=== PATIENT | male | born 1970 | race Caucasian/White ===

== ENCOUNTER 2018-12-07 19:41 | Observation (INO) ==
[2018-12-07] MEDS ORDERED: Ipratropium/Albuterol Neb 3 ML IH ONE (21:13)
[2018-12-07 21:45] LABS: Basophils # 0.1 K/mcL (0.0-0.2); Basophils % 0.3 %; Eosinophils # 0.4 K/mcL (0.0-0.6); Eosinophils % 2.2 %; Hematocrit 40.7 % (37.5-50.1); Hemoglobin 12.9 g/dL (12.9-16.9); Immature Granulocytes % 0.5 % (0-4); Lymphocytes # 3.4 K/mcL (0.6-4.6); Lymphocytes % 21.8 %; Mean Corpuscular HGB Conc 31.7 g/dL (31.6-35.5); Mean Corpuscular Hemoglobin 28.7 pg (28.0-33.3); Mean Corpuscular Volume 90.6 fL (83.0-100.0); Mean Platelet Volume 9.9 fL (9.4-12.4); Monocytes # 0.7 K/mcL (0.0-1.3); Monocytes % 4.7 %; Platelet Count 366 K/mcL (140-400); Red Blood Count 4.49 M/mcL (4.19-5.50); Red Cell Distribution Width 16.4 % (11.5-14.5); Segmented Neutrophils % 70.5 %; White Blood Count 15.6 K/mcL (4.3-11.1)
--- NOTE | 2018-12-07 21:57 | Emergency Department Note ---
Disposition Clinical Impression: COPD exacerbation Disposition: Admitted As Inpatient Condition: Good Time of Disposition: 23:01 General Adult HPI - General Chief complaint: ED Dizziness Stated complaint: cough / fever / sore throat Time Seen by Provider: 12/07/18 19:51 Source: patient Limitations: no limitations Nursing Notes Reviewed: Yes Vital Signs Reviewed: Yes - History of Present Illness HPI Narrative: Patient is a 48-year-old male history of diabetes, asthma, COPD presenting the emergency department with cough. Patient states that on Saturday he had an episode of emesis in which he thinks he may have aspirated. Since then he has had a cough that is productive with green, and clear sputum, as well as upper sinus congestion.. She admits to fevers, chills, shortness of breath, wheezes, sore throat, pain when he coughs. Patient stated he took his fever at home and it was 101, for which he took a Tylenol for at 4 PM. He states his oxygen was also low. Denies chest pain, abdominal pain, urinary changes, headache Pain Scale: 8 - Related Data Home Medications Medication Instructions Recorded Confirmed Aspirin [Lo-Dose Aspirin EC] 81 mg PO DAILY 03/14/18 12/08/18 Atorvastatin [Lipitor] 80 mg PO HS 03/14/18 12/08/18 Benztropine [Cogentin] 1 mg PO HS 03/14/18 12/08/18 Buspirone HCl [Buspar] 15 mg PO BID 03/14/18 12/08/18 Duloxetine HCl [Cymbalta] 60 mg PO DAILY 03/14/18 12/08/18 Fluticasone Propionate Nasal 2 spray NS DAILY 03/14/18 12/08/18 [Flonase] Gabapentin [Neurontin] 800 mg PO TID 03/14/18 12/08/18 Levothyroxine [Synthroid] 25 mcg PO 0630 03/14/18 12/08/18 Lisinopril [Zestril] 5 mg PO DAILY 03/14/18 12/08/18 Melatonin 5 mg PO HS 03/14/18 12/08/18 Metformin HCl [Fortamet] 1,000 mg PO BID 03/14/18 12/08/18 Montelukast [Singulair] 10 mg PO HS 03/14/18 12/08/18 Multivit-Min/Folic/Vit K/Lycop 1 each PO DAILY 03/14/18 12/08/18 [Men's Multivitamin Caplet] Omeprazole [PriLOSEC] 20 mg PO DAILY 03/14/18 12/08/18 Prazosin HCl [Minipress] 1 cap PO BID 03/14/18 12/08/18 Ranitidine HCl [Acid Materials Specialist] 150 mg PO HS 03/14/18 12/08/18 Tizanidine HCl [Zanaflex] 4 mg PO TID 03/14/18 12/08/18 Ziprasidone HCl [Geodon] 80 mg PO BID 03/14/18 12/08/18 hydrOXYzine HCl [Hydroxyzine HCl] 50 mg PO QID PRN 03/14/18 12/08/18 Albuterol Sulfate 3 ml PO TID 07/16/18 12/08/18 Albuterol Sulfate [Ventolin Hfa] 2 puff PO Q4H 07/16/18 12/08/18 Aspirin/Acetaminophen/Caffeine 2 tab PO Q6H PRN 07/16/18 12/08/18 [Excedrin Migraine Caplet] Dulaglutide [Trulicity] 0.5 ml SQ QWEEK 07/16/18 12/08/18 Epipen 0.3 ml .ROUTE PRN PRN 07/16/18 12/08/18 Ergocalciferol 50,000 unit PO QWEEK 07/16/18 12/08/18 Fexofenadine HCl 1 tab PO DAILY 07/16/18 12/08/18 Fexofenadine/Pseudoephedrine 1 tab PO DAILY 07/16/18 12/08/18 [Nydia-D 24 Hour Tablet] Furosemide [Lasix] 1 tab PO DAILY 07/16/18 12/08/18 Hair Skin Nails-Biotin Gummies 1 tab PO DAILY 07/16/18 12/08/18 Humulin R U-500 Kwikpen 1 unit SQ BID 07/16/18 12/08/18 Mometasone Furoate 1 appl .ROUTE DAILY 07/16/18 12/08/18 Nitroglycerin [Nitrostat] 1 tab PO Q5MIN PRN 07/16/18 12/08/18 Pramipexole Di-HCl [Pramipexole 1 tab PO HS 07/16/18 12/08/18 Dihydrochloride] Rizatriptan Benzoate [Maxalt Doll Wig Maker Rooted Hair] 1 tab PO DAILY PRN 07/16/18 12/08/18 Simethicone [Gas Relief] 1 cap PO BID PRN 07/16/18 12/08/18 Sleep Aid 1 cap PO DAILY 07/16/18 12/08/18 Symbicort 160/4.5 2 puff PO BID 07/16/18 12/08/18 Previous Rx's Medication Instructions Recorded Acetaminophen [Tylenol] 650 mg PO Q6HR PRN #40 tablet MDD 09/21/15 3250 Azithromycin 250 mg PO DAILY #4 tablet 12/08/18 predniSONE [PredniSONE] 40 mg PO DAILY #10 tablet 12/08/18 Allergies Allergy/AdvReac Type Severity Reaction Status Date / Time Bleach (Sodium Hypochlorite) Allergy Hives Verified 06/27/18 08:56 fluticasone Allergy Swelling Verified 06/27/18 08:56 [From Advair Diskus] of Lip/Tongue/Throat salmeterol Allergy Swelling Verified 06/27/18 08:56 [From Advair Diskus] of Lip/Tongue/Throat tree nut Allergy unknown Verified 06/27/18 08:56 venom-honey bee Allergy unknown Verified 06/27/18 08:56 [bee venom (honey bee)] acetaminophen [From Percocet] AdvReac Blister Verified 06/27/18 08:56 oxycodone [From Percocet] AdvReac Blister Verified 06/27/18 08:56 All systems ED: reviewed and negative except as stated. Review of Systems: As Per HPI Constitutional: Reports: fever, chills Eyes: Denies: eye pain, eye discharge ENT ED: Denies: ear pain, throat pain Cardiovascular: Denies: chest pain, palpitations, dyspnea on exertion Respiratory: Reports: cough, dyspnea, wheezes, hemoptysis, sputum production Gastrointestinal: Denies: abdominal pain, nausea, vomiting, diarrhea, constipation Genitourinary: Denies: urgency, dysuria Musculoskeletal: Denies: back pain, neck pain Integumentary: Denies: rash, abrasion Neurological: Denies: headache, weakness Psychiatric: Denies: anxiety, depression Past Medical History - Past Medical History Attestation: Yes The following information was validated with the patient. Medical history: Reports: asthma, COPD, diabetes, GERD, hyperlipidemia, hypertension, kidney stones, migraine, thyroid disease, other Surgical history: Reports: appendectomy, sinus surgery, tonsillectomy, other Psychiatric history: Reports: anxiety, depression - Social History Smoking Status: Current every day smoker Smokeless Tobacco Status: No Alcohol use: Reports: none Drug use: Reports: none, marijuana Physical Exam - General Limitations: no limitations General appearance: alert, anxious - Head Head exam: atraumatic, normocephalic - Eye Eye exam: Present: normal appearance, PERRL, EOMI. Absent: scleral icterus, conjunctival injection (.) - ENT ENT exam: mucous membranes moist, TM's normal bilaterally, normal external ear exam (All of her is) - Neck Neck exam: Present: normal inspection - Chest Chest inspection: Present: normal inspection, symmetric chest wall rise - Respiratory Respiratory exam: Present: wheezes. Absent: respiratory distress, accessory muscle use (After the first 6 months), prolonged expiratory phase - Cardiovascular Cardiovascular exam: Present: regular rate, tachycardia, normal heart sounds (4) - Abdominal Exam Abdominal exam: Present: soft, Non-Tender. Absent: tenderness, distention, guarding, rebound - Neurological Exam Neurological exam: Present: alert, oriented X3 Course Course Narrative: patient presented with a cough, fever, shortness of breath, congestion follow. There is concern for pneumonia versus COPD exacerbation. We have ordered labs including procalcitonin, lactate as well as blood cultures. We have ordered a chest x-ray. We have ordered a breathing treatment to help with the wheezing and shortness of breath. - Reevaluation(s) Reevaluation #1: Spoke with patient. Patient states he is breathing better and the breathing treatments helped him patient has no longer wheezy. Discussed the results and findings. Time: 22:26 - Consultations Consultation #1: Patient signed out to Dr. Bustos and Dr. Reyes please refer to their note for further evaluation and treatment. Time: 23:10 Vital Signs Temperature 98.1 F 12/07/18 19:43 Pulse Rate 108 12/07/18 19:43 Respiratory Rate 22 12/07/18 19:43 Blood Pressure 135/95 12/07/18 19:43 O2 Sat by Pulse Oximetry 94 12/07/18 19:43 Temperature 98.1 F 12/08/18 11:25 Pulse Rate 86 12/08/18 11:25 Respiratory Rate 26 12/08/18 16:10 Blood Pressure 128/86 12/08/18 11:25 O2 Sat by Pulse Oximetry 96 12/08/18 16:10 Oxygen Delivery Oxygen Delivery Room Air Medical Decision Making - MDM Narrative Medical decision making narrative: patient presented with cough shortness, shortness of breath, fever his concerns for pneumonia. The patient elevated white count of 15.6, pro-calcitonin was negative as well as's lactate. This is possibly a COPD exacerbation. He im proved with the breathing treatments. Patient s signed out to Dr. Bustos and wrist Dr. Reyes please refer to their note for further evaluation and treatment. - Medical Records Medical records reviewed: Yes I reviewed the patient's medical records. - Lab Data Lab results reviewed: Yes I reviewed the patient's lab results. Result diagrams: 12/08/18 04:56 12/08/18 04:56 Lab Results 12/07/18 12/07/18 12/07/18 Range/Units 21:26 21:26 21:26 WBC 15.6 H (4.3-11.1) K/mcL RBC 4.49 (4.19-5.50) M/mcL Hgb 12.9 (12.9-16.9) g/dL Hct 40.7 (37.5-50.1) % MCV 90.6 (83.0-100.0) fL MCH 28.7 (28.0-33.3) pg MCHC 31.7 (31.6-35.5) g/dL RDW 16.4 H (11.5-14.5) % Plt Count 366 (140-400) K/mcL MPV 9.9 (9.4-12.4) fL Immature Gran % 0.5 (0-4) % Seg Neutrophils % 70.5 % Lymphocytes % 21.8 % Monocytes % 4.7 % Eosinophils % 2.2 % Basophils % 0.3 % Neutrophils # 11.0 H (1.6-8.9) K/mcL Lymphocytes # 3.4 (0.6-4.6) K/mcL Monocytes # 0.7 (0.0-1.3) K/mcL Eosinophils # 0.4 (0.0-0.6) K/mcL Basophils # 0.1 (0.0-0.2) K/mcL D-Dimer (0-500) ng/mLFEU Sodium 136 (136-145) mEq/L Potassium 4.1 (3.5-5.1) mEq/L Chloride 97 L (98-107) mEq/L Carbon Dioxide 26 (23-29) mEq/L BUN 11 (6-20) mg/dL Creatinine 0.83 (0.70-1.30) mg/dL Est GFR ( Amer) > 60 (> 60) Est GFR (Non-Af Amer) > 60 (> 60) BUN/Creatinine Ratio 13 (6-26) Glucose 125 H (70-105) mg/dL Calculated Osmolality 283 (280-300) Lactic Acid 2.0 (0.5-2.2) mmol/L Calcium 9.8 (8.6-10.3) mg/dL Troponin I < 0.03 (< 0.04) ng/mL B-Natriuretic Peptide (Less than 100) pg/mL Procalcitonin (0.00-0.15) ng/mL 12/07/18 12/07/18 12/07/18 Range/Units 21:26 21:26 21:26 WBC (4.3-11.1) K/mcL RBC (4.19-5.50) M/mcL Hgb (12.9-16.9) g/dL Hct (37.5-50.1) % MCV (83.0-100.0) fL MCH (28.0-33.3) pg MCHC (31.6-35.5) g/dL RDW (11.5-14.5) % Plt Count (140-400) K/mcL MPV (9.4-12.4) fL Immature Gran % (0-4) % Seg Neutrophils % % Lymphocytes % % Monocytes % % Eosinophils % % Basophils % % Neutrophils # (1.6-8.9) K/mcL Lymphocytes # (0.6-4.6) K/mcL Monocytes # (0.0-1.3) K/mcL Eosinophils # (0.0-0.6) K/mcL Basophils # (0.0-0.2) K/mcL D-Dimer 391 (0-500) ng/mLFEU Sodium (136-145) mEq/L Potassium (3.5-5.1) mEq/L Chloride (98-107) mEq/L Carbon Dioxide (23-29) mEq/L BUN (6-20) mg/dL Creatinine (0.70-1.30) mg/dL Est GFR ( Amer) (> 60) Est GFR (Non-Af Amer) (> 60) BUN/Creatinine Ratio (6-26) Glucose (70-105) mg/dL Calculated Osmolality (280-300) Lactic Acid (0.5-2.2) mmol/L Calcium (8.6-10.3) mg/dL Troponin I (< 0.04) ng/mL B-Natriuretic Peptide 15 (Less than 100) pg/mL Procalcitonin 0.11 (0.00-0.15) ng/mL - Radiology Data Radiology results reviewed: Yes I reviewed the patient's radiology results. Chest X-Ray 12/07/18 20:35 IMPRESSION: No acute process. D/ / Servando Lopez MD / Servando Lopez MD Interpreting Provider: Servando Lopez MD - EKG Data EKG #1 EKG attestation: Yes I reviewed and interpreted this EKG. EKG results narrative: EKG performed at 2100 and reviewed by myself and the attending shows a sinus rhythm that is tachycardic with a rate of 103, ID 168, QRS 101, QTc 468. Normal interval. There are no ST elevations, T-wave changes or other signs of ischemia. There is no EKG to compare this with. Overall this is a otherwise normal EKG except for the tachycardia. Attestation Statement - Attestation Attestation: I, Cristi Bustos, examined this patient and my medical decision-making was reviewed with the INSPECTOR PENETRANT/PA/Advanced Practice Nurse/Resident Physician. I agree with the documented findings, disposition and treatment plan as described except to the extent set forth below. 48-year-old male presents emergency Department with concerns of cough, fever, dyspnea. Patient states his MAXIMUM TEMPERATURE was 101 at home. He does not have a fever in the emergency department. Patient states he believes he aspirated within the past week. He reports that his O2 saturation has been 92% at home and is usually 96%. In the emergency department he does have wheezing the bilateral posterior lung sagastume. Chest x-ray does not show evidence of acute abnormality. He is afebrile. He has a leukocytosis however his pro- calcitonin is negative. Patient is otherwise awake alert answer questions appropriately. He does not appear in respiratory distress. He is given breathing treatment emergency department with improvement of symptoms. Patient likely has a COPD exacerbation as the etiology of his symptoms. He was tachycardic upon ambulation in the emergency department and felt lightheaded and that he was given a pass out. Troponin pending, d-dimer pending. Patient care will be transferred to the night team pending further evaluation and disposition.
[2018-12-07 22:07] LABS: BUN/Creatinine Ratio 13 (6-26); Blood Urea Nitrogen 11 mg/dL (6-20); Calcium 9.8 mg/dL (8.6-10.3); Carbon Dioxide 26 mEq/L (23-29); Chloride 97 mEq/L (98-107); Glucose 125 mg/dL (70-105); Osmolality,Calculated 283 (280-300); Potassium 4.1 mEq/L (3.5-5.1); Sodium 136 mEq/L (136-145); eGFR For African Americans > 60 (> 60); eGFR For Non-African Americans > 60 (> 60)
[2018-12-07] MEDS ORDERED: 0.9 % Sodium Chloride 1,000 ML IVC ONE (22:53)
[2018-12-07] MEDS ORDERED: Azithromycin 500 MG in D5% in Water 250 ML IVPB ONE (22:54)
[2018-12-07 23:20] LABS: Troponin I < 0.03 ng/mL (< 0.04)
--- NOTE | 2018-12-08 00:10 | Emergency Department Note ---
Disposition Clinical Impression: COPD exacerbation Disposition: Admitted As Inpatient Condition: Good Instructions: Chronic Obstructive Pulmonary Disease (ED) Reasons to Return/Additional Instructions: Please follow-up with your primary care provider for continuation of your care within the next week. Return to the emergency department if you develop any worsening of your condition or if you develop new concerning symptoms. Take your medications as prescribed. Referrals: Yolanda Cooper [Primary Care Provider] - Forms: ED Satisfaction Letter Time of Disposition: 00:10 General Adult HPI - General Chief complaint: ED Dizziness Stated complaint: cough / fever / sore throat Time Seen by Provider: 12/07/18 19:51 Source: patient Limitations: no limitations - History of Present Illness Pain Scale: 8 - Related Data Home Medications Medication Instructions Recorded Confirmed Aspirin [Lo-Dose Aspirin EC] 81 mg PO DAILY 03/14/18 12/08/18 Atorvastatin [Lipitor] 80 mg PO HS 03/14/18 12/08/18 Benztropine [Cogentin] 1 mg PO HS 03/14/18 12/08/18 Buspirone HCl [Buspar] 15 mg PO BID 03/14/18 12/08/18 Duloxetine HCl [Cymbalta] 60 mg PO DAILY 03/14/18 12/08/18 Fluticasone Propionate Nasal 2 spray NS DAILY 03/14/18 12/08/18 [Flonase] Gabapentin [Neurontin] 800 mg PO TID 03/14/18 12/08/18 Levothyroxine [Synthroid] 25 mcg PO 0630 03/14/18 12/08/18 Lisinopril [Zestril] 5 mg PO DAILY 03/14/18 12/08/18 Melatonin 5 mg PO HS 03/14/18 12/08/18 Metformin HCl [Fortamet] 1,000 mg PO BID 03/14/18 12/08/18 Montelukast [Singulair] 10 mg PO HS 03/14/18 12/08/18 Multivit-Min/Folic/Vit K/Lycop 1 each PO DAILY 03/14/18 12/08/18 [Men's Multivitamin Caplet] Omeprazole [PriLOSEC] 20 mg PO DAILY 03/14/18 12/08/18 Prazosin HCl [Minipress] 1 cap PO BID 03/14/18 12/08/18 Ranitidine HCl [Acid Concrete Floater] 150 mg PO HS 03/14/18 12/08/18 Tizanidine HCl [Zanaflex] 4 mg PO TID 03/14/18 12/08/18 Ziprasidone HCl [Geodon] 80 mg PO BID 03/14/18 12/08/18 hydrOXYzine HCl [Hydroxyzine HCl] 50 mg PO QID PRN 03/14/18 12/08/18 Albuterol Sulfate 3 ml PO TID 07/16/18 12/08/18 Albuterol Sulfate [Ventolin Hfa] 2 puff PO Q4H 07/16/18 12/08/18 Aspirin/Acetaminophen/Caffeine 2 tab PO Q6H PRN 07/16/18 12/08/18 [Excedrin Migraine Caplet] Dulaglutide [Trulicity] 0.5 ml SQ QWEEK 07/16/18 12/08/18 Epipen 0.3 ml .ROUTE PRN PRN 07/16/18 12/08/18 Ergocalciferol 50,000 unit PO QWEEK 07/16/18 12/08/18 Fexofenadine HCl 1 tab PO DAILY 07/16/18 12/08/18 Fexofenadine/Pseudoephedrine 1 tab PO DAILY 07/16/18 12/08/18 [Nydia-D 24 Hour Tablet] Furosemide [Lasix] 1 tab PO DAILY 07/16/18 12/08/18 Hair Skin Nails-Biotin Gummies 1 tab PO DAILY 07/16/18 12/08/18 Humulin R U-500 Kwikpen 1 unit SQ BID 07/16/18 12/08/18 Ibuprofen [Ibu] 1 tab PO TID PRN 07/16/18 12/08/18 Mometasone Furoate 1 appl .ROUTE DAILY 07/16/18 12/08/18 Nitroglycerin [Nitrostat] 1 tab PO Q5MIN PRN 07/16/18 12/08/18 Pramipexole Di-HCl [Pramipexole 1 tab PO HS 07/16/18 12/08/18 Dihydrochloride] Rizatriptan Benzoate [Maxalt Fretted String Instrument Repairer] 1 tab PO DAILY PRN 07/16/18 12/08/18 Simethicone [Gas Relief] 1 cap PO BID PRN 07/16/18 12/08/18 Sleep Aid 1 cap PO DAILY 07/16/18 12/08/18 Symbicort 160/4.5 2 puff PO BID 07/16/18 12/08/18 Previous Rx's Medication Instructions Recorded Acetaminophen [Tylenol] 650 mg PO Q6HR PRN #40 tablet MDD 09/21/15 3250 Ondansetron ODT [Zofran ODT] 4 mg SL Q8HR PRN #12 tab.rapdis 07/16/18 Rivaroxaban [Xarelto] 10 mg PO DAILY #20 tablet 07/16/18 Allergies Allergy/AdvReac Type Severity Reaction Status Date / Time Bleach (Sodium Hypochlorite) Allergy Hives Verified 06/27/18 08:56 fluticasone Allergy Swelling Verified 06/27/18 08:56 [From Advair Diskus] of Lip/Tongue/Throat salmeterol Allergy Swelling Verified 06/27/18 08:56 [From Advair Diskus] of Lip/Tongue/Throat tree nut Allergy unknown Verified 06/27/18 08:56 venom-honey bee Allergy unknown Verified 06/27/18 08:56 [bee venom (honey bee)] acetaminophen [From Percocet] AdvReac Blister Verified 06/27/18 08:56 oxycodone [From Percocet] AdvReac Blister Verified 06/27/18 08:56 Constitutional: Reports: fever, chills Eyes: Denies: eye pain, eye discharge ENT ED: Denies: ear pain, throat pain Cardiovascular: Denies: chest pain, palpitations, dyspnea on exertion Respiratory: Reports: cough, dyspnea, wheezes, hemoptysis, sputum production Gastrointestinal: Denies: abdominal pain, nausea, vomiting, diarrhea, constipation Genitourinary: Denies: urgency, dysuria Musculoskeletal: Denies: back pain, neck pain Integumentary: Denies: rash, abrasion Neurological: Denies: headache, weakness Psychiatric: Denies: anxiety, depression Past Medical History - Past Medical History Medical history: Reports: asthma, COPD, diabetes, GERD, hyperlipidemia, hype rtension, kidney stones, migraine, thyroid disease, other Surgical history: Reports: appendectomy, sinus surgery, tonsillectomy, other Psychiatric history: Reports: anxiety, depression - Social History Smoking Status: Current every day smoker Smokeless Tobacco Status: No Alcohol use: Reports: none Drug use: Reports: none, marijuana Physical Exam - General Limitations: no limitations General appearance: alert, anxious Course Vital Signs Temperature 98.1 F 12/07/18 19:43 Pulse Rate 108 12/07/18 19:43 Respiratory Rate 22 12/07/18 19:43 Blood Pressure 135/95 12/07/18 19:43 O2 Sat by Pulse Oximetry 94 12/07/18 19:43 Temperature 98.1 F 12/07/18 19:43 Pulse Rate 105 12/07/18 23:47 Respiratory Rate 12 12/07/18 23:47 Blood Pressure 137/93 12/07/18 23:47 O2 Sat by Pulse Oximetry 92 12/07/18 23:47 Oxygen Delivery Oxygen Delivery Room Air Medical Decision Making - Lab Data Result diagrams: 12/07/18 21:26 12/07/18 21:26 Lab Results 12/07/18 12/07/18 12/07/18 Range/Units 21:26 21:26 21:26 WBC 15.6 H (4.3-11.1) K/mcL RBC 4.49 (4.19-5.50) M/mcL Hgb 12.9 (12.9-16.9) g/dL Hct 40.7 (37.5-50.1) % MCV 90.6 (83.0-100.0) fL MCH 28.7 (28.0-33.3) pg MCHC 31.7 (31.6-35.5) g/dL RDW 16.4 H (11.5-14.5) % Plt Count 366 (140-400) K/mcL MPV 9.9 (9.4-12.4) fL Immature Gran % 0.5 (0-4) % Seg Neutrophils % 70.5 % Lymphocytes % 21.8 % Monocytes % 4.7 % Eosinophils % 2.2 % Basophils % 0.3 % Neutrophils # 11.0 H (1.6-8.9) K/mcL Lymphocytes # 3.4 (0.6-4.6) K/mcL Monocytes # 0.7 (0.0-1.3) K/mcL Eosinophils # 0.4 (0.0-0.6) K/mcL Basophils # 0.1 (0.0-0.2) K/mcL D-Dimer (0-500) ng/mLFEU Sodium 136 (136-145) mEq/L Potassium 4.1 (3.5-5.1) mEq/L Chloride 97 L (98-107) mEq/L Carbon Dioxide 26 (23-29) mEq/L BUN 11 (6-20) mg/dL Creatinine 0.83 (0.70-1.30) mg/dL Est GFR ( Amer) > 60 (> 60) Est GFR (Non-Af Amer) > 60 (> 60) BUN/Creatinine Ratio 13 (6-26) Glucose 125 H (70-105) mg/dL Calculated Osmolality 283 (280-300) Lactic Acid 2.0 (0.5-2.2) mmol/L Calcium 9.8 (8.6-10.3) mg/dL Troponin I < 0.03 (< 0.04) ng/mL B-Natriuretic Peptide (Less than 100) pg/mL Procalcitonin (0.00-0.15) ng/mL 12/07/18 12/07/18 12/07/18 Range/Units 21:26 21:26 21:26 WBC (4.3-11.1) K/mcL RBC (4.19-5.50) M/mcL Hgb (12.9-16.9) g/dL Hct (37.5-50.1) % MCV (83.0-100.0) fL MCH (28.0-33.3) pg MCHC (31.6-35.5) g/dL RDW (11.5-14.5) % Plt Count (140-400) K/mcL MPV (9.4-12.4) fL Immature Gran % (0-4) % Seg Neutrophils % % Lymphocytes % % Monocytes % % Eosinophils % % Basophils % % Neutrophils # (1.6-8.9) K/mcL Lymphocytes # (0.6-4.6) K/mcL Monocytes # (0.0-1.3) K/mcL Eosinophils # (0.0-0.6) K/mcL Basophils # (0.0-0.2) K/mcL D-Dimer 391 (0-500) ng/mLFEU Sodium (136-145) mEq/L Potassium (3.5-5.1) mEq/L Chloride (98-107) mEq/L Carbon Dioxide (23-29) mEq/L BUN (6-20) mg/dL Creatinine (0.70-1.30) mg/dL Est GFR ( Amer) (> 60) Est GFR (Non-Af Amer) (> 60) BUN/Creatinine Ratio (6-26) Glucose (70-105) mg/dL Calculated Osmolality (280-300) Lactic Acid (0.5-2.2) mmol/L Calcium (8.6-10.3) mg/dL Troponin I (< 0.04) ng/mL B-Natriuretic Peptide 15 (Less than 100) pg/mL Procalcitonin 0.11 (0.00-0.15) ng/mL Attestation Statement - Attestation Attestation: I reviewed the residents documentation and agree with the residents assessment and plan of care. I have personally had face to face time with the patient. (Brief History, Brief Exam, and MDM) I personally supervised and was present for the [place]/critical portions of the following procedures completed by the resident: acceptd sign out from Dr. Cristi gloria. Plan is to followup on the D-dimer and then if positive obbtain a cTA chest, but if negtive thena dmit to medicine for COPDE. Dd-beck is negative and we have admitted to medicne for COPDE
[2018-12-08] MEDS ORDERED: Albuterol 2.5 MG/3 ML NEBULIZER IH PRN (03:09)
[2018-12-08] MEDS ORDERED: Naloxone 0.4 MG/ML INJ IVP PRN (03:09)
[2018-12-08] MEDS ORDERED: Dextrose Gel 15 GM/37.5 ML TUBE PO PRN ×2 (03:09)
[2018-12-08] MEDS ORDERED: D5% in Water 1,000 ML IVC PRN (03:09)
[2018-12-08] MEDS ORDERED: *HR* Dextrose 50 % in Water (Syg) 50 ML SYRINGE IVP PRN (03:09)
--- NOTE | 2018-12-08 03:19 | Internal Med History&Physical ---
Date of Encounter: 12/08/18 Time of Encounter: 02:22 Internal Medicine - H&P: HPI Chief complaint: COPD exacerbation Admitted From: Emergency Dept Plans for Post Hospital Care: Home History of present illness: Mr. Chinchilla is a 48 year old male Patient presented to the emergency department with shortness of breath and c ough. He says approximately 5 days ago he had an episode of vomiting and possibly aspirated. Since then he has been coughing up brownish colored sputum. 2 days ago patient noticed that his right ear and sinuses felt clogged. He is also noticed coarse breath sounds and crackles in his lungs when he breathes. He measured his temperature at home and it was 101.4. Since his ear has been congested, he states he is also had some balance issues. He came to the emergency department for further evaluation. 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 Emergency department patient's initial vital signs: Temperature 98.1, pulse 108, respiratory rate 22, blood pressure 135/95, O2 saturation 94%. CBC: Notable for white count 15.6. BMP within normal limits, aside from mildly elevated blood glucose of 125. Initial troponin undetectable Lactic acid is 2.0 Procalcitonin 0.11 BNP 15 D-dimer 391 Chest x-ray showed no acute process. EKG: Sinus tachycardia with rate of 103, QTC 468. No acute ischemic changes. Emergency department patient had blood cultures drawn, and he was given 1 L of IV fluids, a dose of azithromycin IV, and breathing treatments. He was admitted to the hospital due to continued oxygen requirement despite not being on oxygen at home. Upon my evaluation, patient is resting comfortably in the hospital bed in no acute distress. He denies chest pain, abdominal pain, nausea, vomiting, diarrhea and constipation. He has a history of smoking, diabetes and COPD. He denies significant family medical history. He is a full code. Past Med Surg Social Fam HX - Past Medical History Medical history: asthma, COPD, diabetes, GERD, hyperlipidemia, hypertension, kidney stones, migraine, thyroid disease, other Additional medical history: LEFT ANKLE INJURY. Gb U/s shows probably fatty liver HIDA scan nrl. sleep apnea Psychiatric history: anxiety, depression - Past Surgical History Surgical History: appendectomy, sinus surgery, tonsillectomy, other Additional surgical history: right knee surgery. eye surgery. nasal surgery. tonsil - Social History Smoking Status: Current every day smoker Smokeless Tobacco Status: No Alcohol use: none Drug use: none, marijuana - Family History Mother Hx Family Cardiac Disorders: Yes (SC with stents) Hx Family Respiratory Disorders: Yes (COPD, asthma) Hx Family Endocrine Disorder: Yes (DM) Hx Family Musculoskeletal Disorders: Yes (spinal stenosis, knee and hip replacements) Hx Family Neurologic Disorders: Yes (stroke) Internal Medicine - H&P: Meds Acetaminophen [Tylenol] 650 mg PO Q6HR PRN #40 tablet MDD 3250 09/21/15 [Rx] Aspirin [Lo-Dose Aspirin EC] 81 mg PO DAILY 03/14/18 [History] Atorvastatin [Lipitor] 80 mg PO HS 03/14/18 [History] Benztropine [Cogentin] 1 mg PO HS 03/14/18 [History] Buspirone HCl [Buspar] 15 mg PO BID 03/14/18 [History] Duloxetine HCl [Cymbalta] 60 mg PO DAILY 03/14/18 [History] Fluticasone Propionate Nasal [Flonase] 2 spray NS DAILY 03/14/18 [History] Gabapentin [Neurontin] 800 mg PO TID 03/14/18 [History] Levothyroxine [Synthroid] 25 mcg PO 0630 03/14/18 [History] Lisinopril [Zestril] 5 mg PO DAILY 03/14/18 [History] Melatonin 5 mg PO HS 03/14/18 [History] Metformin HCl [Fortamet] 1,000 mg PO BID 03/14/18 [History] Montelukast [Singulair] 10 mg PO HS 03/14/18 [History] Multivit-Min/Folic/Vit K/Lycop [Men's Multivitamin Caplet] 1 each PO DAILY 03/14/18 [History] Omeprazole [PriLOSEC] 20 mg PO DAILY 03/14/18 [History] Prazosin HCl [Minipress] 1 cap PO BID 03/14/18 [History] Ranitidine HCl [Acid Check Inspector] 150 mg PO HS 03/14/18 [History] Tizanidine HCl [Zanaflex] 4 mg PO TID 03/14/18 [History] Ziprasidone HCl [Geodon] 80 mg PO BID 03/14/18 [History] hydrOXYzine HCl [Hydroxyzine HCl] 50 mg PO QID PRN 03/14/18 [History] Albuterol Sulfate 3 ml PO TID 07/16/18 [History] Albuterol Sulfate [Ventolin Hfa] 2 puff PO Q4H 07/16/18 [History] Aspirin/Acetaminophen/Caffeine [Excedrin Migraine Caplet] 2 tab PO Q6H PRN 07/16/18 [History] Dulaglutide [Trulicity] 0.5 ml SQ QWEEK 07/16/18 [History] Epipen 0.3 ml .ROUTE PRN PRN 07/16/18 [History] Ergocalciferol 50,000 unit PO QWEEK 07/16/18 [History] Fexofenadine HCl 1 tab PO DAILY 07/16/18 [History] Fexofenadine/Pseudoephedrine [Nydia-D 24 Hour Tablet] 1 tab PO DAILY 07/16/18 [History] Furosemide [Lasix] 1 tab PO DAILY 07/16/18 [History] Hair Skin Nails-Biotin Gummies 1 tab PO DAILY 07/16/18 [History] Humulin R U-500 Kwikpen 1 unit SQ BID 07/16/18 [History] Ibuprofen [Ibu] 1 tab PO TID PRN 07/16/18 [History] Mometasone Furoate 1 appl .ROUTE DAILY 07/16/18 [History] Nitroglycerin [Nitrostat] 1 tab PO Q5MIN PRN 07/16/18 [History] Ondansetron ODT [Zofran ODT] 4 mg SL Q8HR PRN #12 tab.rapdis 07/16/18 [Rx] Pramipexole Di-HCl [Pramipexole Dihydrochloride] 1 tab PO HS 07/16/18 [History] Rivaroxaban [Xarelto] 10 mg PO DAILY #20 tablet 07/16/18 [Rx] Rizatriptan Benzoate [Maxalt Theatrical Variety Agent] 1 tab PO DAILY PRN 07/16/18 [History] Simethicone [Gas Relief] 1 cap PO BID PRN 07/16/18 [History] Sleep Aid 1 cap PO DAILY 07/16/18 [History] Symbicort 160/4.5 2 puff PO BID 07/16/18 [History] Allergy/AdvReac Type Severity Reaction Status Date / Time Bleach (Sodium Hypochlorite) Allergy Hives Verified 06/27/18 08:56 fluticasone Allergy Swelling Verified 06/27/18 08:56 [From Advair Diskus] of Lip/Tongue/Throat salmeterol Allergy Swelling Verified 06/27/18 08:56 [From Advair Diskus] of Lip/Tongue/Throat tree nut Allergy unknown Verified 06/27/18 08:56 venom-honey bee Allergy unknown Verified 06/27/18 08:56 [bee venom (honey bee)] acetaminophen [From Percocet] AdvReac Blister Verified 06/27/18 08:56 oxycodone [From Percocet] AdvReac Blister Verified 06/27/18 08:56 All Systems PM: A 10-system review of systems was performed and is negative for pertinent fi ndings except as documented above in the HPI. - Constitutional Vitals: Temp Pulse Resp BP Pulse Ox 98.3 F 101 16 118/82 91 12/08/18 02:15 12/08/18 02:15 12/08/18 02:15 12/08/18 02:15 12/08/18 02:15 General appearance: Present: cooperative, A&O X 3, morbidly obese, pleasant, no acute distress, answers questions appropriately Exam: - - Head Head exam: Present: normal inspection - Eye Eye exam: Present: EOMI, normal appearance - ENT ENT exam: Present: mucous membranes moist, normal external ear exam, TM's normal bilaterally Additional comments: Could not visualize right tympanic membrane secondary to cerumen buildup - Respiratory Respiratory exam: Present: wheezes. Absent: decreased breath sounds, CTAB, rales - Cardiovascular Cardiovascular exam: Present: RRR. Absent: diastolic murmur, systolic murmur - GI/Abdominal GI/Abdominal exam: Present: normal bowel sounds, soft. Absent: tenderness - Extremities Exam Extremities exam: Present: warm, radial pulses palpable and symmetrical. Absent: calf tenderness, pedal edema, tenderness Additional comments: Patient currently wearing compression stockings - Neurological Exam Neurological exam: Present: no focal deficits, strengths equal and symetr throughout. Absent: motor sensory deficit, facial droop, speech deficit - Skin Skin exam: Present: dry, normal color, warm Internal Med - H&P Results - Labs CBC & Chem 7: 12/07/18 21:26 12/07/18 21:26 Labs: Short CBC 12/07/18 Range/Units 21:26 WBC 15.6 H (4.3-11.1) K/mcL Hgb 12.9 (12.9-16.9) g/dL Hct 40.7 (37.5-50.1) % Plt Count 366 (140-400) K/mcL Neutrophils # 11.0 H (1.6-8.9) K/mcL BMP 12/07/18 21:26 Sodium 136 Potassium 4.1 Chloride 97 L Carbon Dioxide 26 BUN 11 Creatinine 0.83 Glucose 125 H Calcium 9.8 Cardiac Enzymes 12/07/18 Range/Units 21:26 Troponin I < 0.03 (< 0.04) ng/mL - Impressions ITS Impressions Chest X-Ray 12/07/18 20:35 IMPRESSION: No acute process. D/ / Servando Lopez MD / Servando Lopez MD Interpreting Provider: Servando Lopez MD - Assessment and Plan (1) COPD exacerbation Current Visit: Yes Status: Acute Assessment and plan: Patient received breathing treatments in the emergency department with improvement in his breathing. Continue breathing treatments Oral prednisone for 5 days Oxygen supplementation as needed Azithromycin 500 mg daily (2) Diabetes Current Visit: Yes Status: Acute Assessment and plan: Patient is an insulin dependent diabetic Monitor sugars ACHS Diabetic diet Low dose insulin sliding scale as needed Hold home meds. 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 Continue to monitor Receiving azithromycin 500 mg for COPD exacerbation Consider Augmentin at discharge if patient's symptoms not improving (4) Nicotine use disorder Current Visit: Yes Status: Acute Assessment and plan: Nicotine patch (5) Obstructive sleep apnea Current Visit: Yes Status: Acute Assessment and plan: Continue CPAP (6) DVT prophylaxis Current Visit: Yes Status: Acute Assessment and plan: Subcutaneous heparin - Time Spent With Patient Total time spent is greater than 50% in coordination of care (as documented) at patient's floor/unit and/or counseling patient: Greater than 35 minutes
[2018-12-08] MEDS: Nicotine 21 MG PATCH.TD24 TD SCH ×2 (03:44→08:08)
[2018-12-08] MEDS: Ipratropium/Albuterol Neb 3 ML IH SCH ×3 (04:15→16:15)
[2018-12-08 05:18] LABS: Hematocrit 39.6 % (37.5-50.1); Hemoglobin 12.5 g/dL (12.9-16.9); Mean Corpuscular HGB Conc 31.6 g/dL (31.6-35.5); Mean Corpuscular Hemoglobin 28.5 pg (28.0-33.3); Mean Corpuscular Volume 90.4 fL (83.0-100.0); Mean Platelet Volume 9.9 fL (9.4-12.4); Platelet Count 344 K/mcL (140-400); Red Blood Count 4.38 M/mcL (4.19-5.50); Red Cell Distribution Width 16.6 % (11.5-14.5); White Blood Count 16.3 K/mcL (4.3-11.1)
[2018-12-08 05:36] LABS: BUN/Creatinine Ratio 11 (6-26); Blood Urea Nitrogen 11 mg/dL (6-20); Calcium 9.2 mg/dL (8.6-10.3); Carbon Dioxide 29 mEq/L (23-29); Chloride 99 mEq/L (98-107); Glucose 158 mg/dL (70-105); Osmolality,Calculated 287 (280-300); Sodium 137 mEq/L (136-145); eGFR For African Americans > 60 (> 60); eGFR For Non-African Americans > 60 (> 60)
[2018-12-08] MEDS ORDERED: *HR* Heparin 5,000 UNIT/ML VIAL SQ SCH (06:00)
[2018-12-08] MEDS: Insulin LISPRO 300 UNITS/3 ML VIAL SQ SCH ×2 (08:09→12:39)
[2018-12-08] MEDS ORDERED: Nicotine 21 MG PATCH.TD24 TD SCH (09:00)
[2018-12-08] MEDS ORDERED: predniSONE 20 MG TABLET PO SCH (09:00)
[2018-12-08 11:32] VITALS: BP 128/86
--- NOTE | 2018-12-08 14:16 | Discharge Summary ---
- NOTES TO OUTPATIENT PROVIDER Notes to Outpatient Provider: f/u with PCP in one week. f/u with Pulmonary Dr. Collado in 2 weeks for sleepy study. Please quit smoking. 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 Chinchilla is a 48 year old male with a known past medical history of COPD, CHRISS on CPAP, diabetes, GERD, hyperlipidemia, hypertension, kidney stones, migraine, chronic tobacco dependence and hypothyroidism pt presented to ER with progressively worsening SOB and cough with expectoration. Pt was admitted in the hospital and started him on empirical abx Azithromycin and Systemic steroids. Pt stated he is feeling better today. He is breathing comfortably on room air. Seems to be he is not using CPAP, as he should, I recommend him to go for another sleep study and scheduled an appointment with Dr. Collado. Also addictions counselor assistant ed him to quit smoking - Time Spent with Patient Total time spent providing and/or coordinating discharge services: - Discharge Medications Prescriptions: New Azithromycin 250 mg PO DAILY #4 tablet predniSONE [PredniSONE] 40 mg PO DAILY #10 tablet Continued Acetaminophen [Tylenol] 650 mg PO Q6HR PRN #40 tablet MDD 3250 PRN Reason: Pain Melatonin 5 mg PO HS Multivit-Min/Folic/Vit K/Lycop [Men's Multivitamin Caplet] 1 each PO DAILY Aspirin [Lo-Dose Aspirin EC] 81 mg PO DAILY Duloxetine HCl [Cymbalta] 60 mg PO DAILY Tizanidine HCl [Zanaflex] 4 mg PO TID Omeprazole [PriLOSEC] 20 mg PO DAILY Ranitidine HCl [Acid Motion Picture Equipment Machinist] 150 mg PO HS Lisinopril [Zestril] 5 mg PO DAILY Atorvastatin [Lipitor] 80 mg PO HS Ziprasidone HCl [Geodon] 80 mg PO BID Levothyroxine [Synthroid] 25 mcg PO 0630 Benztropine [Cogentin] 1 mg PO HS Montelukast [Singulair] 10 mg PO HS Metformin HCl [Fortamet] 1,000 mg PO BID Prazosin HCl [Minipress] 1 cap PO BID Buspirone HCl [Buspar] 15 mg PO BID hydrOXYzine HCl [Hydroxyzine HCl] 50 mg PO QID PRN PRN Reason: Anxiety Gabapentin [Neurontin] 800 mg PO TID Fluticasone Propionate Nasal [Flonase] 2 spray NS DAILY Mometasone Furoate 1 appl .ROUTE DAILY Dulaglutide [Trulicity] 0.5 ml SQ QWEEK Ibuprofen [Ibu] 1 tab PO TID PRN PRN Reason: Pain Albuterol Sulfate [Ventolin Hfa] 2 puff PO Q4H Albuterol Sulfate 3 ml PO TID Fexofenadine/Pseudoephedrine [Nydia-D 24 Hour Tablet] 1 tab PO DAILY Pramipexole Di-HCl [Pramipexole Dihydrochloride] 1 tab PO HS Furosemide [Lasix] 1 tab PO DAILY Nitroglycerin [Nitrostat] 1 tab PO Q5MIN PRN PRN Reason: Chest Pain Ergocalciferol 50,000 unit PO QWEEK Epipen 0.3 ml .ROUTE PRN PRN PRN Reason: Anaphylaxis Symbicort 160/4.5 2 puff PO BID Sleep Aid 1 cap PO DAILY Hair Skin Nails-Biotin Gummies 1 tab PO DAILY Rizatriptan Benzoate [Maxalt Outboard System Operator] 1 tab PO DAILY PRN PRN Reason: Migraine Headache Fexofenadine HCl 1 tab PO DAILY Simethicone [Gas Relief] 1 cap PO BID PRN PRN Reason: gas Aspirin/Acetaminophen/Caffeine [Excedrin Migraine Caplet] 2 tab PO Q6H PRN PRN Reason: Migraine Headache Humulin R U-500 Kwikpen 1 unit SQ BID Ondansetron ODT [Zofran ODT] 4 mg SL Q8HR PRN #12 tab.rapdis PRN Reason: Nausea Rivaroxaban [Xarelto] 10 mg PO DAILY #20 tablet Home Medications: Acetaminophen [Tylenol] 650 mg PO Q6HR PRN #40 tablet MDD 3250 09/21/15 [Rx] Aspirin [Lo-Dose Aspirin EC] 81 mg PO DAILY 03/14/18 [History] Atorvastatin [Lipitor] 80 mg PO HS 03/14/18 [History] Benztropine [Cogentin] 1 mg PO HS 03/14/18 [History] Buspirone HCl [Buspar] 15 mg PO BID 03/14/18 [History] Duloxetine HCl [Cymbalta] 60 mg PO DAILY 03/14/18 [History] Fluticasone Propionate Nasal [Flonase] 2 spray NS DAILY 03/14/18 [History] Gabapentin [Neurontin] 800 mg PO TID 03/14/18 [History] Levothyroxine [Synthroid] 25 mcg PO 0630 03/14/18 [History] Lisinopril [Zestril] 5 mg PO DAILY 03/14/18 [History] Melatonin 5 mg PO HS 03/14/18 [History] Metformin HCl [Fortamet] 1,000 mg PO BID 03/14/18 [History] Montelukast [Singulair] 10 mg PO HS 03/14/18 [History] Multivit-Min/Folic/Vit K/Lycop [Men's Multivitamin Caplet] 1 each PO DAILY 03/14/18 [History] Omeprazole [PriLOSEC] 20 mg PO DAILY 03/14/18 [History] Prazosin HCl [Minipress] 1 cap PO BID 03/14/18 [History] Ranitidine HCl [Acid Motion Picture Equipment Machinist] 150 mg PO HS 03/14/18 [History] Tizanidine HCl [Zanaflex] 4 mg PO TID 03/14/18 [History] Ziprasidone HCl [Geodon] 80 mg PO BID 03/14/18 [History] hydrOXYzine HCl [Hydroxyzine HCl] 50 mg PO QID PRN 03/14/18 [History] Albuterol Sulfate 3 ml PO TID 07/16/18 [History] Albuterol Sulfate [Ventolin Hfa] 2 puff PO Q4H 07/16/18 [History] Aspirin/Acetaminophen/Caffeine [Excedrin Migraine Caplet] 2 tab PO Q6H PRN 07/16/18 [History] Dulaglutide [Trulicity] 0.5 ml SQ QWEEK 07/16/18 [History] Epipen 0.3 ml .ROUTE PRN PRN 07/16/18 [History] Ergocalciferol 50,000 unit PO QWEEK 07/16/18 [History] Fexofenadine HCl 1 tab PO DAILY 07/16/18 [History] Fexofenadine/Pseudoephedrine [Nydia-D 24 Hour Tablet] 1 tab PO DAILY 07/16/18 [History] Furosemide [Lasix] 1 tab PO DAILY 07/16/18 [History] Hair Skin Nails-Biotin Gummies 1 tab PO DAILY 07/16/18 [History] Humulin R U-500 Kwikpen 1 unit SQ BID 07/16/18 [History] Ibuprofen [Ibu] 1 tab PO TID PRN 07/16/18 [History] Mometasone Furoate 1 appl .ROUTE DAILY 07/16/18 [History] Nitroglycerin [Nitrostat] 1 tab PO Q5MIN PRN 07/16/18 [History] Ondansetron ODT [Zofran ODT] 4 mg SL Q8HR PRN #12 tab.rapdis 07/16/18 [Rx] Pramipexole Di-HCl [Pramipexole Dihydrochloride] 1 tab PO HS 07/16/18 [History] Rivaroxaban [Xarelto] 10 mg PO DAILY #20 tablet 07/16/18 [Rx] Rizatriptan Benzoate [Maxalt Outboard System Operator] 1 tab PO DAILY PRN 07/16/18 [History] Simethicone [Gas Relief] 1 cap PO BID PRN 07/16/18 [History] Sleep Aid 1 cap PO DAILY 07/16/18 [History] Symbicort 160/4.5 2 puff PO BID 07/16/18 [History] Azithromycin 250 mg PO DAILY #4 tablet 12/08/18 [Rx] predniSONE [PredniSONE] 40 mg PO DAILY #10 tablet 12/08/18 [Rx] Allergies/Adverse Reactions: Allergy/AdvReac Type Severity Reaction Status Date / Time Bleach (Sodium Hypochlorite) Allergy Hives Verified 06/27/18 08:56 fluticasone Allergy Swelling Verified 06/27/18 08:56 [From Advair Diskus] of Lip/Tongue/Throat salmeterol Allergy Swelling Verified 06/27/18 08:56 [From Advair Diskus] of Lip/Tongue/Throat tree nut Allergy unknown Verified 06/27/18 08:56 venom-honey bee Allergy unknown Verified 06/27/18 08:56 [bee venom (honey bee)] acetaminophen [From Percocet] AdvReac Blister Verified 06/27/18 08:56 oxycodone [From Percocet] AdvReac Blister Verified 06/27/18 08:56 Date of admission: 12/08/18 00:23 Primary care physician: Yolanda oCoper Consults: 12/08/18 03:10 Consult to Nurse Navigator [CONS] Routine Comment: COPD - Constitutional Vitals: Temp Pulse Resp BP Pulse Ox 98.1 F 86 15 128/86 94 12/08/18 11:25 12/08/18 11:25 12/08/18 11:25 12/08/18 11:25 12/08/18 11:25 General appearance: Present: cooperative, A&O X 3, morbidly obese, pleasant, no acute distress, answers questions appropriately Exam: Gen: Alert, awake, Oriented to time,place and person Chest: Diminished breath sounds B/L, moderate wheezing, No crackles, No rales Heart: S1S2+ RRR No murmurs Abd: Soft, NT, BS +, No organomegaly Ext: No edema, pulses are palpable, No calf tenderness Neuro : No acute focal neuro deficits noticed Skin: No rash. - Patient Status Disposition: Home, Self-Care Condition: Good Overall status at discharge: patient is back to baseline - Discharge Instructions Instructions: How to Stop Smoking (DC), Diabetes Mellitus Type 2 in Adults (DC), Chronic Obstructive Pulmonary Disease (DC) Follow Up With: Julian Collado MD [Partnered Physician] - (Appointment has been requested.) Yolanda Cooper [Primary Care Provider] - - Diet and Activity Activity: increase activity as tolerated Diet: low salt diet
[2018-12-08] MEDS ORDERED: Insulin LISPRO 300 UNITS/3 ML VIAL SQ SCH (21:00)
[2018-12-08] MEDS ORDERED: Azithromycin 500 MG in D5% in Water 250 ML IVPB SCH (23:00)
--- NOTE | 2018-12-09 16:11 | Electrocardiograph Report ---
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
== END 2018-12-08 16:04 | disposition home or self-care (01) ==
LOC: EMEROOARM 19:41 → 3BNU 19:41 → SUATTDRO 12-08 00:23 → 3BNU 12-08 01:30
PROVIDERS: ADMIT Pediatrics; ATTEND Family Medicine

== ENCOUNTER 2019-04-03 16:52 | Inpatient (IN) ==
[2019-04-03 18:43] LABS: BUN/Creatinine Ratio 14 (6-26); Basophils # 0.1 K/mcL (0.0-0.2); Basophils % 0.6 %; Blood Urea Nitrogen 11 mg/dL (6-20); Calcium 9.2 mg/dL (8.6-10.3); Carbon Dioxide 28 mEq/L (23-29); Chloride 99 mEq/L (98-107); Eosinophils # 0.4 K/mcL (0.0-0.6); Eosinophils % 2.2 %; Glucose 96 mg/dL (70-105); Hematocrit 38.6 % (37.5-50.1); Hemoglobin 12.6 g/dL (12.9-16.9); Immature Granulocytes % 0.4 % (0-4); Lymphocytes # 2.7 K/mcL (0.6-4.6); Lymphocytes % 16.7 %; Mean Corpuscular HGB Conc 32.6 g/dL (31.6-35.5); Mean Corpuscular Hemoglobin 29.3 pg (28.0-33.3); Mean Corpuscular Volume 89.8 fL (83.0-100.0); Mean Platelet Volume 9.9 fL (9.4-12.4); Monocytes # 0.8 K/mcL (0.0-1.3); Monocytes % 4.9 %; Osmolality,Calculated 281 (280-300); Platelet Count 414 K/mcL (140-400); Potassium 4.2 mEq/L (3.5-5.1); Red Cell Distribution Width 15.5 % (11.5-14.5); Segmented Neutrophils % 75.2 %; Sodium 136 mEq/L (136-145); eGFR For African Americans > 60 (> 60); eGFR For Non-African Americans > 60 (> 60)
[2019-04-03] MEDS ORDERED: Naloxone 0.4 MG/ML INJ IVP PRN (19:19)
[2019-04-03] MEDS ORDERED: 0.9 % Sodium Chloride 1,000 ML IVC SCH (19:30)
[2019-04-03] MEDS ORDERED: cefTRIAXone 2,000 MG in Water for inj. (sterile) 20 ML IVP ONE (19:47)
[2019-04-03] MEDS ORDERED: *HR* HYDROmorphone (PF) 1 MG/ML SYRINGE IVP ONE (19:49)
[2019-04-03] MEDS ORDERED: D5% in Water 1,000 ML IVC PRN (20:00)
[2019-04-03] MEDS ORDERED: Dextrose Gel 15 GM/37.5 ML TUBE PO PRN ×2 (20:00)
[2019-04-03] MEDS ORDERED: *HR* Dextrose 50 % in Water (Syg) 50 ML SYRINGE IVP PRN (20:00)
[2019-04-03] MEDS ORDERED: Nicotine 2 MG GUM BC PRN (20:02)
[2019-04-03] MEDS ORDERED: 0.9 % Sodium Chloride 1,000 ML IV ONE (20:14)
[2019-04-03] MEDS ORDERED: Nicotine 14 MG PATCH.TD24 TD SCH (20:15)
[2019-04-03 22:29] LABS: Bilirubin,Urine Negative (Negative); Blood,Urine Negative (Negative); Clarity,Urine Clear (Clear); Color,Urine Yellow (Yellow); Glucose,Urine (UA) >=1000 mg/dL (Normal); Ketones,Urine Negative (Negative); Leukocyte Esterase,Urine Negative (Negative); Nitrite,Urine Negative (Negative); Protein,Urine Negative (Neg-Trace); Specific Gravity,Urine > 1.030 (1.010-1.025); Urobilinogen,Urine Normal (Normal)
[2019-04-03] MEDS: MetroNIDAZOLE 500 MG/100 ML 500 MG/100 ML BAG IVPB SCH (22:32)
[2019-04-04] MEDS: MetroNIDAZOLE 500 MG/100 ML 500 MG/100 ML BAG IVPB SCH ×2 (00:16→08:18)
[2019-04-04] MEDS: Insulin LISPRO 300 UNITS/3 ML VIAL SQ SCH ×4 (00:16→17:28)
[2019-04-04] MEDS ORDERED: Naloxone 0.4 MG/ML INJ IVP PRN ×3 (03:34→14:06)
[2019-04-04 05:56] LABS: Basophils # 0.1 K/mcL (0.0-0.2); Basophils % 0.5 %; Eosinophils # 0.3 K/mcL (0.0-0.6); Hematocrit 37.8 % (37.5-50.1); Hemoglobin 11.6 g/dL (12.9-16.9); Immature Granulocytes % 0.3 % (0-4); Lymphocytes # 3.1 K/mcL (0.6-4.6); Lymphocytes % 27.9 %; Mean Corpuscular HGB Conc 30.7 g/dL (31.6-35.5); Mean Corpuscular Hemoglobin 28.6 pg (28.0-33.3); Mean Corpuscular Volume 93.1 fL (83.0-100.0); Mean Platelet Volume 10.1 fL (9.4-12.4); Monocytes # 0.6 K/mcL (0.0-1.3); Monocytes % 5.5 %; Neutrophils # 7.1 K/mcL (1.6-8.9); Platelet Count 357 K/mcL (140-400); Red Blood Count 4.06 M/mcL (4.19-5.50); Red Cell Distribution Width 15.5 % (11.5-14.5); Segmented Neutrophils % 62.8 %; White Blood Count 11.2 K/mcL (4.3-11.1)
[2019-04-04 06:01] LABS: INR 1.1; Prothrombin Time 12.8 Seconds (9.4-12.1)
[2019-04-04 06:17] LABS: Alanine Aminotransferase 20 Units/L (7-52); Albumin 3.8 g/dL (3.5-5.7); Albumin/Globulin Ratio 1.2 (1.1-2.2); Alkaline Phosphatase 79 Units/L (34-104); Aspartate Amino Transferase 18 Units/L (13-39); BUN/Creatinine Ratio 14 (6-26); Bilirubin,Total 0.3 mg/dL (0.3-1.0); Blood Urea Nitrogen 11 mg/dL (6-20); Carbon Dioxide 28 mEq/L (23-29); Chloride 102 mEq/L (98-107); Globulin 3.3 g/dL (2.4-3.5); Glucose 128 mg/dL (70-105); Magnesium 1.9 mg/dL (1.6-2.6); Osmolality,Calculated 285 (280-300); Phosphorous 4.4 mg/dL (2.7-4.5); Potassium 4.2 mEq/L (3.5-5.1); Sodium 137 mEq/L (136-145); Total Protein 7.1 g/dL (6.4-8.9); eGFR For African Americans > 60 (> 60); eGFR For Non-African Americans > 60 (> 60)
[2019-04-04] MEDS ORDERED: Insulin LISPRO 300 UNITS/3 ML VIAL SQ SCH ×2 (07:30→18:00)
[2019-04-04] MEDS ORDERED: Lidocaine HCL 4 ML Topical Solution (Laryng-O-Jet Kit Sterile Pak) TP ONE (11:00)
[2019-04-04] MEDS ORDERED: *HR* Midazolam HCl 2 MG/2 ML VIAL ONE (11:01)
[2019-04-04] MEDS ORDERED: Dexamethasone 4 MG/ML VIAL ONE (11:01)
[2019-04-04] MEDS ORDERED: *HR* FentaNYL (PF) 100 MCG/2 ML VIAL ONE (11:01)
[2019-04-04] MEDS ORDERED: Lidocaine -MPF 2% 2 ML VIAL ONE (11:01)
[2019-04-04] MEDS ORDERED: Ondansetron 4 MG/2 ML VIAL ONE (11:01)
[2019-04-04] MEDS ORDERED: *HR* Propofol 200 MG/20 ML VIAL IVP ONE (11:01)
[2019-04-04] MEDS ORDERED: *HR* Succinylcholine 200 MG/10 ML VIAL IVP ONE (11:01)
[2019-04-04] MEDS ORDERED: Vancomycin 1,000 MG VIAL ONE (12:06)
[2019-04-04] MEDS ORDERED: Bupivacaine/EPI 1:200k 0.5%PF 30 ML VIAL ONE (12:08)
[2019-04-04] MEDS ORDERED: Acetaminophen IV 1,000 MG/100 ML INFUS..BTL ONE (12:14)
[2019-04-04] MEDS ORDERED: *HR* Promethazine 25 MG/ML VIAL IVP PRN ×2 (12:30→14:06)
[2019-04-04] MEDS ORDERED: *HR* OxyCODONE Immed Rel 5 MG TABLET PO PRN ×2 (12:30→14:06)
[2019-04-04] MEDS ORDERED: *HR* HYDROmorphone (PF) 1 MG/ML SYRINGE IVP PRN ×2 (12:30→14:06)
[2019-04-04] MEDS ORDERED: Ondansetron 4 MG/2 ML VIAL IVP ONE ×2 (12:30→14:06)
[2019-04-04] MEDS ORDERED: Dexmedetomidine HCl 400 MCG/100 ML MLS IVC ONE (12:38)
[2019-04-04] MEDS ORDERED: D5% in Water 1,000 ML IVC PRN (14:06)
[2019-04-04] MEDS ORDERED: *HR* Dextrose 50 % in Water (Syg) 50 ML SYRINGE IVP PRN (14:06)
[2019-04-04] MEDS ORDERED: Dextrose Gel 15 GM/37.5 ML TUBE PO PRN ×2 (14:06)
[2019-04-04] MEDS ORDERED: Nicotine 2 MG GUM BC PRN (14:06)
[2019-04-04] MEDS ORDERED: MetroNIDAZOLE 500 MG/100 ML 500 MG/100 ML BAG IVPB SCH (16:00)
[2019-04-04] MEDS: Nicotine 14 MG PATCH.TD24 TD SCH (17:34)
[2019-04-05] MEDS: Piperacillin/Tazobactam 3.375 GM in 0.9 % Sodium Chloride Mini Bag 100 ML IVPB SCH ×4 (00:05→20:07)
[2019-04-05 06:23] LABS: Basophils # 0.1 K/mcL (0.0-0.2); Basophils % 0.5 %; Eosinophils # 0.3 K/mcL (0.0-0.6); Eosinophils % 2.2 %; Hematocrit 39.3 % (37.5-50.1); Immature Granulocytes % 0.2 % (0-4); Lymphocytes # 2.5 K/mcL (0.6-4.6); Lymphocytes % 19.6 %; Mean Corpuscular HGB Conc 30.5 g/dL (31.6-35.5); Mean Corpuscular Hemoglobin 28.9 pg (28.0-33.3); Mean Corpuscular Volume 94.7 fL (83.0-100.0); Mean Platelet Volume 11.2 fL (9.4-12.4); Monocytes # 0.7 K/mcL (0.0-1.3); Monocytes % 5.6 %; Neutrophils # 9.1 K/mcL (1.6-8.9); Platelet Count 287 K/mcL (140-400); Red Blood Count 4.15 M/mcL (4.19-5.50); Red Cell Distribution Width 15.4 % (11.5-14.5); Segmented Neutrophils % 71.9 %; White Blood Count 12.7 K/mcL (4.3-11.1)
[2019-04-05 07:05] LABS: BUN/Creatinine Ratio 14 (6-26); Blood Urea Nitrogen 10 mg/dL (6-20); Calcium 8.7 mg/dL (8.6-10.3); Carbon Dioxide 21 mEq/L (23-29); Chloride 100 mEq/L (98-107); Glucose 126 mg/dL (70-105); Osmolality,Calculated 281 (280-300); Potassium 4.9 mEq/L (3.5-5.1); Sodium 135 mEq/L (136-145); eGFR For African Americans > 60 (> 60); eGFR For Non-African Americans > 60 (> 60)
[2019-04-05] MEDS: Insulin LISPRO 300 UNITS/3 ML VIAL SQ SCH ×3 (07:43→18:15)
[2019-04-05] MEDS: *HR* Heparin 5,000 UNIT/ML VIAL SQ SCH ×2 (07:47→18:16)
[2019-04-05] MEDS ORDERED: Sennosides 8.6 MG TABLET PO PRN (10:10)
[2019-04-05] MEDS ORDERED: DICLOFENAC SODIUM TP PRN (10:10)
[2019-04-05] MEDS ORDERED: Albuterol 2.5 MG/3 ML NEBULIZER IH PRN (10:10)
[2019-04-05] MEDS ORDERED: hydrOXYzine pamoate 25 MG CAPSULE PO PRN (10:10)
[2019-04-05] MEDS ORDERED: Simethicone 80 MG TAB.CHEW PO PRN (10:10)
[2019-04-05] MEDS ORDERED: RIZATRIPTAN BENZOATE PO PRN (10:10)
[2019-04-05] MEDS: Gabapentin 400 MG CAPSULE PO SCH ×3 (11:21→20:50)
[2019-04-05] MEDS: Diltiazem CD (24hr) 180 MG CAPSULE PO SCH ×2 (11:21→20:50)
[2019-04-05] MEDS: Levothyroxine 25 MCG TABLET PO SCH (11:58)
[2019-04-05] MEDS: Acetaminophen/Aspirin/Caffeine TABLET PO PRN (11:58)
[2019-04-05] MEDS: Furosemide 20 MG TABLET PO SCH (12:04)
[2019-04-05] MEDS ORDERED: Methyl Salicylate/Menthol 28 GM TUBE TP PRN (12:34)
[2019-04-05] MEDS ORDERED: SUMAtriptan succinate 25 MG TABLET PO PRN (12:38)
[2019-04-05] MEDS ORDERED: Methyl Salicylate/Menthol 57 APPL/57 GM TUBE TP PRN (13:11)
[2019-04-05] MEDS ORDERED: traZODone 50 MG TABLET PO PRN (17:34)
[2019-04-05] MEDS: Nicotine 14 MG PATCH.TD24 TD SCH (17:54)
[2019-04-05] MEDS: Budesonide/Formoterol 160/4.5 1 PUFF INH IH SCH (20:31)
[2019-04-05] MEDS: Ziprasidone 20 MG CAPSULE PO SCH (20:50)
[2019-04-05] MEDS: Melatonin 3 MG TABLET PO SCH (20:51)
[2019-04-05] MEDS: Famotidine 20 MG TABLET PO SCH (20:51)
[2019-04-05] MEDS: Fluticasone Propionate Nasal 50 MCG/SPRAY BOTTLE NS SCH (20:52)
[2019-04-05] MEDS ORDERED: NON-FORMULARY MEDICATION 1 EACH EACH (Melatonin 20 MG) PO SCH (21:00)
[2019-04-05] MEDS ORDERED: NON-FORMULARY MEDICATION 1 EACH EACH (Tiotropium Bromide [Spiriva Respimat] 2 PUFF) IH SCH (21:00)
[2019-04-06] MEDS: Piperacillin/Tazobactam 3.375 GM in 0.9 % Sodium Chloride Mini Bag 100 ML IVPB SCH ×2 (04:19→13:16)
[2019-04-06 05:50] LABS: Basophils # 0.1 K/mcL (0.0-0.2); Basophils % 0.6 %; Eosinophils # 0.3 K/mcL (0.0-0.6); Eosinophils % 3.1 %; Hematocrit 38.1 % (37.5-50.1); Hemoglobin 11.8 g/dL (12.9-16.9); Immature Granulocytes % 0.3 % (0-4); Lymphocytes # 2.7 K/mcL (0.6-4.6); Lymphocytes % 27.3 %; Mean Corpuscular Hemoglobin 28.4 pg (28.0-33.3); Mean Corpuscular Volume 91.8 fL (83.0-100.0); Mean Platelet Volume 9.8 fL (9.4-12.4); Monocytes # 0.7 K/mcL (0.0-1.3); Monocytes % 7.5 %; Platelet Count 375 K/mcL (140-400); Red Blood Count 4.15 M/mcL (4.19-5.50); Red Cell Distribution Width 15.2 % (11.5-14.5); Segmented Neutrophils % 61.2 %; White Blood Count 9.8 K/mcL (4.3-11.1)
[2019-04-06 06:23] LABS: BUN/Creatinine Ratio 13 (6-26); Blood Urea Nitrogen 11 mg/dL (6-20); Carbon Dioxide 28 mEq/L (23-29); Chloride 98 mEq/L (98-107); Glucose 134 mg/dL (70-105); Osmolality,Calculated 287 (280-300); Sodium 138 mEq/L (136-145); eGFR For African Americans > 60 (> 60); eGFR For Non-African Americans > 60 (> 60)
[2019-04-06] MEDS: Levothyroxine 25 MCG TABLET PO SCH (06:54)
[2019-04-06] MEDS: *HR* Heparin 5,000 UNIT/ML VIAL SQ SCH ×2 (06:54→17:26)
[2019-04-06] MEDS: Insulin LISPRO 300 UNITS/3 ML VIAL SQ SCH ×3 (07:43→17:31)
[2019-04-06] MEDS: Budesonide/Formoterol 160/4.5 1 PUFF INH IH SCH ×2 (07:53→20:21)
[2019-04-06] MEDS: Tiotropium 18 MCG inhalation IH SCH (07:53)
[2019-04-06] MEDS: Diltiazem CD (24hr) 180 MG CAPSULE PO SCH ×2 (07:59→21:47)
[2019-04-06] MEDS: Ziprasidone 20 MG CAPSULE PO SCH ×2 (07:59→21:46)
[2019-04-06] MEDS: Loratadine/Pseudophed (12 HR) 1 EACH TABLET PO SCH ×2 (07:59→21:47)
[2019-04-06] MEDS: Furosemide 20 MG TABLET PO SCH (07:59)
[2019-04-06] MEDS: Gabapentin 400 MG CAPSULE PO SCH ×3 (07:59→21:47)
[2019-04-06] MEDS: Aspirin Enteric Coated 81 MG Tablet PO SCH (07:59)
[2019-04-06] MEDS: Fluticasone Propionate Nasal 50 MCG/SPRAY BOTTLE NS SCH ×2 (10:10→21:54)
[2019-04-06] MEDS ORDERED: Lidocaine -MPF 1% 5 ML AMPUL INFILT ONE (13:07)
[2019-04-06] MEDS: Acetaminophen/Aspirin/Caffeine TABLET PO PRN (14:20)
[2019-04-06] MEDS: Nicotine 14 MG PATCH.TD24 TD SCH (17:26)
[2019-04-06] MEDS: Famotidine 20 MG TABLET PO SCH (21:47)
[2019-04-06] MEDS: Melatonin 3 MG TABLET PO SCH (21:47)
[2019-04-06] MEDS: Nystatin POWDER 30 GM BOTTLE TP SCH (21:55)
[2019-04-07] MEDS: *HR* Heparin 5,000 UNIT/ML VIAL SQ SCH ×2 (05:06→18:21)
[2019-04-07] MEDS: Levothyroxine 25 MCG TABLET PO SCH (05:06)
[2019-04-07 05:12] LABS: Basophils # 0.1 K/mcL (0.0-0.2); Basophils % 0.6 %; Eosinophils # 0.3 K/mcL (0.0-0.6); Hematocrit 38.1 % (37.5-50.1); Hemoglobin 11.9 g/dL (12.9-16.9); Immature Granulocytes % 0.4 % (0-4); Lymphocytes # 2.6 K/mcL (0.6-4.6); Lymphocytes % 23.7 %; Mean Corpuscular HGB Conc 31.2 g/dL (31.6-35.5); Mean Corpuscular Hemoglobin 28.5 pg (28.0-33.3); Mean Corpuscular Volume 91.4 fL (83.0-100.0); Mean Platelet Volume 9.5 fL (9.4-12.4); Monocytes # 0.6 K/mcL (0.0-1.3); Monocytes % 5.8 %; Neutrophils # 7.4 K/mcL (1.6-8.9); Platelet Count 366 K/mcL (140-400); Red Blood Count 4.17 M/mcL (4.19-5.50); Red Cell Distribution Width 15.1 % (11.5-14.5); Segmented Neutrophils % 66.5 %; White Blood Count 11.1 K/mcL (4.3-11.1)
[2019-04-07 05:31] LABS: BUN/Creatinine Ratio 16 (6-26); Blood Urea Nitrogen 11 mg/dL (6-20); Calcium 9.2 mg/dL (8.6-10.3); Carbon Dioxide 23 mEq/L (23-29); Chloride 100 mEq/L (98-107); Glucose 164 mg/dL (70-105); Osmolality,Calculated 283 (280-300); Potassium 3.7 mEq/L (3.5-5.1); Sodium 135 mEq/L (136-145); eGFR For African Americans > 60 (> 60); eGFR For Non-African Americans > 60 (> 60)
[2019-04-07] MEDS: Tiotropium 18 MCG inhalation IH SCH (07:51)
[2019-04-07] MEDS: Budesonide/Formoterol 160/4.5 1 PUFF INH IH SCH ×2 (07:51→21:09)
[2019-04-07] MEDS: Ziprasidone 20 MG CAPSULE PO SCH ×2 (08:53→22:12)
[2019-04-07] MEDS: Diltiazem CD (24hr) 180 MG CAPSULE PO SCH ×2 (08:53→22:13)
[2019-04-07] MEDS: Aspirin Enteric Coated 81 MG Tablet PO SCH (08:53)
[2019-04-07] MEDS: Loratadine/Pseudophed (12 HR) 1 EACH TABLET PO SCH ×2 (08:53→22:12)
[2019-04-07] MEDS: Gabapentin 400 MG CAPSULE PO SCH ×3 (08:54→22:12)
[2019-04-07] MEDS: Furosemide 20 MG TABLET PO SCH (08:55)
[2019-04-07] MEDS: Insulin LISPRO 300 UNITS/3 ML VIAL SQ SCH ×3 (08:58→16:47)
[2019-04-07] MEDS: Nystatin POWDER 30 GM BOTTLE TP SCH ×3 (09:03→22:12)
[2019-04-07] MEDS: Fluticasone Propionate Nasal 50 MCG/SPRAY BOTTLE NS SCH ×2 (09:03→22:34)
[2019-04-07] MEDS ORDERED: Aminoglycoside Consult 1 EACH MC ONE (11:37)
[2019-04-07] MEDS: Nicotine 14 MG PATCH.TD24 TD SCH (18:21)
[2019-04-07] MEDS: Melatonin 3 MG TABLET PO SCH (22:13)
[2019-04-07] MEDS: Famotidine 20 MG TABLET PO SCH (22:34)
[2019-04-08 06:08] LABS: Basophils # 0.1 K/mcL (0.0-0.2); Basophils % 0.8 %; Eosinophils # 0.4 K/mcL (0.0-0.6); Eosinophils % 3.7 %; Hematocrit 38.6 % (37.5-50.1); Hemoglobin 12.3 g/dL (12.9-16.9); Immature Granulocytes % 0.5 % (0-4); Lymphocytes # 2.6 K/mcL (0.6-4.6); Lymphocytes % 27.2 %; Mean Corpuscular HGB Conc 31.9 g/dL (31.6-35.5); Mean Corpuscular Hemoglobin 28.5 pg (28.0-33.3); Mean Corpuscular Volume 89.6 fL (83.0-100.0); Mean Platelet Volume 9.6 fL (9.4-12.4); Monocytes # 0.6 K/mcL (0.0-1.3); Monocytes % 6.4 %; Neutrophils # 5.8 K/mcL (1.6-8.9); Platelet Count 410 K/mcL (140-400); Red Blood Count 4.31 M/mcL (4.19-5.50); Red Cell Distribution Width 14.9 % (11.5-14.5); Segmented Neutrophils % 61.4 %; White Blood Count 9.5 K/mcL (4.3-11.1)
[2019-04-08 06:30] LABS: BUN/Creatinine Ratio 13 (6-26); Blood Urea Nitrogen 10 mg/dL (6-20); Calcium 9.4 mg/dL (8.6-10.3); Carbon Dioxide 30 mEq/L (23-29); Chloride 98 mEq/L (98-107); Glucose 211 mg/dL (70-105); Osmolality,Calculated 289 (280-300); Potassium 4.3 mEq/L (3.5-5.1); Sodium 137 mEq/L (136-145); eGFR For African Americans > 60 (> 60); eGFR For Non-African Americans > 60 (> 60)
[2019-04-08] MEDS: Budesonide/Formoterol 160/4.5 1 PUFF INH IH SCH (07:16)
[2019-04-08] MEDS: Tiotropium 18 MCG inhalation IH SCH (07:16)
[2019-04-08] MEDS: Levothyroxine 25 MCG TABLET PO SCH (07:51)
[2019-04-08] MEDS: Loratadine/Pseudophed (12 HR) 1 EACH TABLET PO SCH (08:12)
[2019-04-08] MEDS: Gabapentin 400 MG CAPSULE PO SCH (08:12)
[2019-04-08] MEDS: Aspirin Enteric Coated 81 MG Tablet PO SCH (08:13)
[2019-04-08] MEDS: Diltiazem CD (24hr) 180 MG CAPSULE PO SCH (08:14)
[2019-04-08] MEDS: Ziprasidone 20 MG CAPSULE PO SCH (08:23)
[2019-04-08] MEDS: *HR* Heparin 5,000 UNIT/ML VIAL SQ SCH (08:24)
[2019-04-08] MEDS: Fluticasone Propionate Nasal 50 MCG/SPRAY BOTTLE NS SCH (08:26)
[2019-04-08] MEDS: Insulin LISPRO 300 UNITS/3 ML VIAL SQ SCH ×2 (08:26→11:33)
[2019-04-08] MEDS ORDERED: Furosemide 20 MG TABLET PO SCH (09:00)
[2019-04-08 11:01] VITALS: BP 125/88
== END 2019-04-08 11:38 | DRG 856 ==
LOC: 3NENU 16:52 → EMEROOARM 16:52 → SUATTDRO 19:56 → 3NENU 20:43 → SUATTDRO 04-04 12:50
PROVIDERS: ADMIT Internal Medicine; ATTEND Internal Medicine

== ENCOUNTER 2020-12-10 01:38 | Observation (INO) ==
[2020-12-10] MEDS ORDERED: Vancomycin (wt based) 1,000 MG VIAL IV ONE (02:56)
[2020-12-10 02:57] LABS: Basophils # 0.1 K/mcL (0.0-0.2); Basophils % 0.6 %; Eosinophils # 0.4 K/mcL (0.0-0.6); Eosinophils % 3.3 %; Hematocrit 41.3 % (37.5-50.1); Hemoglobin 13.1 g/dL (12.9-16.9); Immature Granulocytes % 0.3 % (0-4); Lymphocytes # 2.7 K/mcL (0.6-4.6); Lymphocytes % 23.2 %; Mean Corpuscular HGB Conc 31.7 g/dL (31.6-35.5); Mean Corpuscular Hemoglobin 29.2 pg (28.0-33.3); Mean Platelet Volume 9.9 fL (9.4-12.4); Monocytes # 0.6 K/mcL (0.0-1.3); Monocytes % 5.2 %; Neutrophils # 7.9 K/mcL (1.6-8.9); Platelet Count 350 K/mcL (140-400); Red Blood Count 4.49 M/mcL (4.19-5.50); Red Cell Distribution Width 14.7 % (11.5-14.5); Segmented Neutrophils % 67.4 %; White Blood Count 11.7 K/mcL (4.3-11.1)
[2020-12-10] MEDS ORDERED: Vancomycin 2,000 MG/520 ML IV.SOLN IVPB ONE (03:00)
[2020-12-10 03:02] LABS: BUN/Creatinine Ratio 13 (6-26); Blood Urea Nitrogen 11 mg/dL (6-20); Calcium 9.1 mg/dL (8.6-10.3); Carbon Dioxide 32 mEq/L (23-29); Chloride 95 mEq/L (98-107); Glucose 308 mg/dL (70-105); Osmolality,Calculated 289 (280-300); Sodium 134 mEq/L (136-145); eGFR For African Americans > 60 (> 60); eGFR For Non-African Americans > 60 (> 60)
[2020-12-10] MEDS ORDERED: Furosemide 40 MG/4 ML VIAL IVP ONE (03:18)
[2020-12-10] MEDS ORDERED: Perflutren Lipid Microsphere 1.3 ML in 0.9 % Sodium Chloride 8.7 ML IVP PRN (04:07)
[2020-12-10] MEDS ORDERED: Dextrose Gel 15 GM/37.5 ML TUBE PO PRN ×2 (04:18)
[2020-12-10] MEDS ORDERED: D5% in Water 1,000 ML IVC PRN (04:18)
[2020-12-10] MEDS ORDERED: *HR* Dextrose 50 % in Water (Vial) 50 ML VIAL IVP PRN (04:18)
[2020-12-10] MEDS ORDERED: Naloxone 0.4 MG/ML INJ IVP PRN (04:21)
[2020-12-10 05:01] LABS: Bilirubin,Urine Negative (Negative); Blood,Urine Negative (Negative); Clarity,Urine Clear (Clear); Color,Urine Light-Yellow (Yellow); Glucose,Urine (UA) >=1000 mg/dL (Normal); Ketones,Urine Negative (Negative); Leukocyte Esterase,Urine Negative (Negative); Mucus,Urine Few per lpf (None-Few); Nitrite,Urine Negative (Negative); Protein,Urine Trace mg/dL (Neg-Trace); RBC,Urine 0-3 per hpf (0-3); Specific Gravity,Urine > 1.030 (1.010-1.025); Squamous Epithelial Cell,Urine Few per hpf (None-Few); Urobilinogen,Urine Normal (Normal); WBC,Urine 0-3 per hpf (0-3)
[2020-12-10] MEDS: *HR* Heparin 5,000 UNIT/ML VIAL SQ SCH ×3 (05:20→21:10)
[2020-12-10] MEDS: Nicotine 21 MG PATCH.TD24 TD SCH (05:20)
[2020-12-10] MEDS: Clindamycin 600 MG/50 ML 600 MG/50 ML IV.SOLN IVPB SCH ×2 (05:21→15:18)
[2020-12-10] MEDS: Insulin LISPRO 300 UNITS/3 ML VIAL SUBQ SCH ×5 (05:34→21:11)
[2020-12-10] MEDS: *HR* OxyCODONE/APAP 5/325 TABLET PO PRN (12:19)
[2020-12-10] MEDS: Insulin DETEMIR 100 UNIT/ML X5UNITS SUBQ SCH (12:22)
[2020-12-10] MEDS ORDERED: Acetaminophen IV 1,000 MG/100 ML BAG IVPB ONE (17:54)
[2020-12-10] MEDS ORDERED: Ipratropium/Albuterol Neb 3 ML IH PRN (18:16)
[2020-12-10] MEDS ORDERED: Nitroglycerin 0.4 MG TAB.SUBL SL PRN (18:16)
[2020-12-10] MEDS: Gabapentin 300 MG CAPSULE PO SCH (21:07)
[2020-12-10] MEDS: Melatonin 3 MG TABLET PO SCH (21:08)
[2020-12-10] MEDS: Ziprasidone 20 MG CAPSULE PO SCH (21:09)
[2020-12-10] MEDS: Fluticasone Propionate Nasal 50 MCG/SPRAY BOTTLE NS SCH (21:09)
[2020-12-10] MEDS: traZODone 50 MG TABLET PO SCH (21:10)
[2020-12-11] MEDS: Clindamycin 600 MG/50 ML 600 MG/50 ML IV.SOLN IVPB SCH ×2 (05:00→17:10)
[2020-12-11] MEDS: Nicotine 21 MG PATCH.TD24 TD SCH (05:00)
[2020-12-11] MEDS: *HR* Heparin 5,000 UNIT/ML VIAL SQ SCH ×3 (06:24→22:00)
[2020-12-11 06:40] LABS: Hematocrit 45.8 % (37.5-50.1); Hemoglobin 14.6 g/dL (12.9-16.9); Mean Corpuscular HGB Conc 31.9 g/dL (31.6-35.5); Mean Corpuscular Hemoglobin 29.4 pg (28.0-33.3); Mean Corpuscular Volume 92.2 fL (83.0-100.0); Mean Platelet Volume 9.8 fL (9.4-12.4); Platelet Count 299 K/mcL (140-400); Red Blood Count 4.97 M/mcL (4.19-5.50); Red Cell Distribution Width 14.6 % (11.5-14.5)
[2020-12-11] MEDS: Fluticasone Propionate Nasal 50 MCG/SPRAY BOTTLE NS SCH ×2 (07:53→20:27)
[2020-12-11] MEDS: Lactobacillus 1 EACH CAP.SPRINK PO SCH ×2 (07:54→20:25)
[2020-12-11] MEDS: Aspirin Enteric Coated 81 MG Tablet PO SCH (07:54)
[2020-12-11] MEDS: Multivit/Ca/Min/Fe/FA 1 TAB TABLET PO SCH (07:54)
[2020-12-11] MEDS: Ziprasidone 20 MG CAPSULE PO SCH ×2 (07:54→20:23)
[2020-12-11] MEDS: Gabapentin 300 MG CAPSULE PO SCH ×3 (07:54→20:23)
[2020-12-11] MEDS: Cholecalciferol (D-3) 1,000 UNIT (25MCG) TABLET PO SCH (07:55)
[2020-12-11] MEDS: Insulin DETEMIR 100 UNIT/ML X5UNITS SUBQ SCH (07:58)
[2020-12-11] MEDS: Levothyroxine 25 MCG TABLET PO SCH (07:59)
[2020-12-11] MEDS: Insulin LISPRO 300 UNITS/3 ML VIAL SUBQ SCH ×4 (08:00→20:26)
[2020-12-11 08:18] LABS: Estimated Average Glucose 235 mg/dl; Hemoglobin A1C 9.8 %
[2020-12-11] MEDS ORDERED: DilTIAZem CD (24hr) 240 MG CAP.ER.24H PO SCH (09:00)
[2020-12-11] MEDS ORDERED: lisinopriL 10 MG TABLET PO SCH (09:00)
[2020-12-11 09:31] LABS: Prothrombin Time 11.9 Seconds (9.4-12.1)
[2020-12-11 09:34] LABS: Activated Partial Thrombo Time 27.6 Seconds (26.0-36.0)
[2020-12-11 09:37] LABS: Blood Urea Nitrogen 10 mg/dL (6-20); Calcium 8.7 mg/dL (8.6-10.3); Carbon Dioxide 30 mEq/L (23-29); Chloride 98 mEq/L (98-107); Glucose 294 mg/dL (70-105); Magnesium 1.9 mg/dL (1.6-2.6); Osmolality,Calculated 290 (280-300); Potassium 4.3 mEq/L (3.5-5.1); Sodium 135 mEq/L (136-145)
[2020-12-11 09:58] LABS: BUN/Creatinine Ratio 14 (6-26); eGFR For African Americans > 60 (> 60); eGFR For Non-African Americans > 60 (> 60)
[2020-12-11] MEDS: Clobetasol Propionate 0.05% 15 GM Cream Tube TP SCH (10:28)
[2020-12-11 11:11] LABS: Thyroid Stimulating Hormone 1.223 mcIU/mL (0.340-5.600)
[2020-12-11] MEDS ORDERED: Ringers Solution, Lactated 1,000 ML IVC ONE ×2 (14:43→15:02)
[2020-12-11] MEDS ORDERED: Ringers Solution, Lactated 1,000 ML ONE (14:52)
[2020-12-11] MEDS ORDERED: Ringers Solution, Lactated 1,000 ML IVC SCH (19:00)
[2020-12-11] MEDS: Acetaminophen 325 MG TABLET PO PRN (19:23)
[2020-12-11] MEDS: Melatonin 3 MG TABLET PO SCH (20:23)
[2020-12-11] MEDS: traZODone 50 MG TABLET PO SCH (20:23)
[2020-12-12] MEDS: Acetaminophen 325 MG TABLET PO PRN ×2 (02:48→05:47)
[2020-12-12] MEDS: *HR* OxyCODONE/APAP 5/325 TABLET PO PRN (02:51)
[2020-12-12] MEDS: Clindamycin 600 MG/50 ML 600 MG/50 ML IV.SOLN IVPB SCH (02:55)
[2020-12-12 05:00] LABS: Hemoglobin 12.2 g/dL (12.9-16.9); Mean Corpuscular HGB Conc 30.5 g/dL (31.6-35.5); Mean Corpuscular Hemoglobin 28.6 pg (28.0-33.3); Mean Corpuscular Volume 93.7 fL (83.0-100.0); Mean Platelet Volume 9.8 fL (9.4-12.4); Platelet Count 294 K/mcL (140-400); Red Blood Count 4.27 M/mcL (4.19-5.50); Red Cell Distribution Width 14.7 % (11.5-14.5); White Blood Count 7.7 K/mcL (4.3-11.1)
[2020-12-12 05:19] LABS: BUN/Creatinine Ratio 14 (6-26); Blood Urea Nitrogen 10 mg/dL (6-20); Calcium 8.8 mg/dL (8.6-10.3); Carbon Dioxide 32 mEq/L (23-29); Chloride 97 mEq/L (98-107); Glucose 303 mg/dL (70-105); Osmolality,Calculated 292 (280-300); Potassium 4.2 mEq/L (3.5-5.1); Sodium 136 mEq/L (136-145); eGFR For African Americans > 60 (> 60); eGFR For Non-African Americans > 60 (> 60)
[2020-12-12] MEDS: Nicotine 21 MG PATCH.TD24 TD SCH (05:45)
[2020-12-12] MEDS: Levothyroxine 25 MCG TABLET PO SCH (05:46)
[2020-12-12] MEDS: *HR* Heparin 5,000 UNIT/ML VIAL SQ SCH ×2 (05:48→14:43)
[2020-12-12] MEDS: Lactobacillus 1 EACH CAP.SPRINK PO SCH (08:42)
[2020-12-12] MEDS: Ziprasidone 20 MG CAPSULE PO SCH (08:42)
[2020-12-12] MEDS: Cholecalciferol (D-3) 1,000 UNIT (25MCG) TABLET PO SCH (08:42)
[2020-12-12] MEDS: Gabapentin 300 MG CAPSULE PO SCH ×2 (08:42→14:43)
[2020-12-12] MEDS: Multivit/Ca/Min/Fe/FA 1 TAB TABLET PO SCH (08:42)
[2020-12-12] MEDS: Aspirin Enteric Coated 81 MG Tablet PO SCH (08:42)
[2020-12-12] MEDS: Insulin LISPRO 300 UNITS/3 ML VIAL SUBQ SCH ×2 (08:46→12:15)
[2020-12-12] MEDS: Clobetasol Propionate 0.05% 15 GM Cream Tube TP SCH (08:50)
[2020-12-12] MEDS: Fluticasone Propionate Nasal 50 MCG/SPRAY BOTTLE NS SCH (08:58)
[2020-12-12] MEDS ORDERED: lisinopriL 5 MG TABLET PO SCH (09:00)
[2020-12-12] MEDS ORDERED: Insulin DETEMIR 100 UNIT/ML X5UNITS SUBQ SCH (09:00)
[2020-12-12 10:35] VITALS: BP 122/81; PULSE 76; TEMP 98.2; O2SAT 92
[2020-12-13] MEDS ORDERED: DilTIAZem CD (24hr) 120 MG CAP.ER.24H PO SCH (09:00)
== END 2020-12-12 15:45 | disposition home or self-care (01) ==
LOC: EMEROOARM 01:38 → 3NENU 01:38 → SUATTDRO 03:51 → 3NENU 04:52
PROVIDERS: ADMIT Internal Medicine; ATTEND Pharmacist